=== PATIENT | male | born 1955 | race Caucasian/White ===

== ENCOUNTER 2018-05-21 19:12 | Inpatient (IN) | payer SELFPAY ==
[2018-05-21] MEDS ORDERED: NS 0.9% 1000 ML* 1,000 ML IV ONE (19:43)
--- NOTE | 2018-05-21 19:45 | ED ---
Neurological HPI - HPI Summary HPI Summary: A 63 y/o male brought in by [place] [facility] presents to [facility] with a chief complaint of right sided numbness. The patient is unable to recall the time of onset but states it was still light outside, so most likely before 16: 30. The patient arrived in the ED at 19:10. Christy cooney was called at 19:[address] Redmond was at bedside examining the patient. He states that he does not have any current pain and rates his pain as 0/10. He also c/o right sided weakness [employer] but states that he was able to ambulate and is not weak anymore. In the ED he is tachycardic. He claims that it felt like he was given Novocaine. The patient reports a Hx of high blood pressure but states that he has not taken medication for it in years. - History of Current Complaint Chief Complaint: EDNeurologicalDeficit Stated Complaint: RIGHT SIDED NUMBNESS Time Seen by Provider: 05/21/18 19:36 Hx Obtained From: Patient, EMS Onset/Duration: Sudden Onset, Started hours ago Timing: Constant Onset Severity: Moderate Current Severity: Moderate Pain Intensity: 0 Pain Scale Used: 0-10 Numeric Character: Weak, Numbness/Tingling Aggravating: Nothing Alleviating: Nothing Associated Signs and Symptoms: Positive: Weakness - Allergy/Home Medications Allergies/Adverse Reactions: Allergies Allergy/AdvReac Type Severity Reaction Status Date / Time No Known Allergies Allergy Verified 05/21/18 19:35 Home Medications: Home Medications NK [No Home Medications Reported] 05/21/18 [History Confirmed 05/21/18] PMH/Surg Hx/FS Hx/Imm Hx Infectious Disease History: Yes Infectious Disease History: Denies: Traveled Outside the [place] in Last 30 Days - Social History Alcohol Use: None Substance Use Type: Reports: None Smoking Status (MU): Never Smoked Tobacco Review of Systems Positive: Other - Positive: tachycardic Positive: Weakness - right sided, Numbness - right sided All Other Systems Reviewed And Are Negative: Yes Physical Exam - Summary Physical Exam Summary: Appearance: The patient is well-nourished in no acute distress and in no acute pain. Skin: The skin is warm and dry and skin color reflects adequate perfusion. HEENT: The head is normocephalic and atraumatic. The pupils are equal and reactive. The conjunctivae are clear and without drainage. Nares are patent and without drainage. Mouth reveals moist mucous membranes and the throat is without erythema and exudate. The external ears are intact. The ear canals are patent and without drainage. The tympanic membranes are intact. Neck: The neck is supple with full range of motion and non-tender. There are no carotid bruits. There is no neck vein distension. Respiratory: Chest is non-tender. Lungs are clear to auscultation and breath sounds are symmetrical and equal. Cardiovascular: Tachycardic. There is no murmur or rub auscultated. There is no peripheral edema and pulses are symmetrical and equal. Abdomen: The abdomen is soft and non-tender. There are normal bowel sounds heard in all four quadrants and there is no organomegaly palpated. Musculoskeletal: There is no back tenderness noted. Extremities are non-tender with full range of motion. There is good capillary refill. There is no peripheral edema or calf tenderness elicited. Neurological: Patient is alert and oriented to person, place and time. Decreased sensation on right side. Psychiatric: The patient has an appropriate affect and does not exhibit any anxiety or depression. GCS: 15 Triage Information Reviewed: Yes Vital Signs On Initial Exam: Initial Vitals Temp Pulse Resp BP Pulse Ox 99.7 F 115 18 185/118 95 05/21/18 19:27 05/21/18 19:27 05/21/18 19:27 05/21/18 19:27 05/21/18 19:27 Vital Signs Reviewed: Yes Diagnostics - Vital Signs Vital Signs Temp Pulse Resp BP Pulse Ox 05/21/18 19:27 99.7 F 115 18 185/118 95 - Laboratory Result Diagrams: 05/21/18 19:51 05/21/18 19:50 Lab Statement: Any lab studies that have been ordered have been reviewed, and results considered in the medical decision making process. - Radiology CXR Radiology Interpretation Completed By: ED Physician Summary of Radiographic Findings: no acute process - CT Head CTA CT Interpretation Completed By: Radiologist Summary of CT Findings: 1. Limited atherosclerosis in the intracavernous portions of the right and left. internal carotid arteries with less than 50% stenoses. 2. M2 branches of the right middle cerebral artery appears somewhat diminutive. without definite occlusion. NECK: No dissection, aneurysm, or significant stenosis in the extracranial carotid. systems or vertebral arteries. ED physician has reviewed this report. Brain CT Interpretation Completed By: Radiologist Summary of CT Findings: 1. No acute intracranial pathology. ASPECTS score 10. 2. Other chronic findings, as above. ED physician has reviewed this imaging report. - EKG 19:46 Cardiac Rate: Tachycardia - 114 bpm EKG Rhythm: Sinus Tachycardia Summary of EKG Findings: normal ST, no ectopy, no STEMI NIH Scale - NIH Scale Level of Consciousness: Alert/Keenly Responsive Ask Patient the Month and His/Her Age: Both Correct Ask Pt to Open/Close Eyes and Cloth Dyeing Range Tender/Release Non-Paretic Hand: Both Correctly Best Gaze (Only Horizontal Eye Movement): Normal Visual Field Testing: No Visual Loss Facial Paresis-Pt to Smile & Close Eyes or Grimace Symmetry: Normal/Symmetrical Motor Function - Right Arm: No Drift-Holds 10 Seconds Motor Function - Left Arm: No Drift-Holds 10 Seconds Motor Function - Right Leg: No Drift-Holds 10 Seconds Motor Function - Left Leg: No Drift-Holds 10 Seconds Limb Ataxia-Must be out of Proportion to Weakness Present: Absent Sensory (Use Pinprick to Test Arms/Legs/Trunk/Face): Pinprick Less on Affected - decreased sensation on right side Best Language (Describe Picture, Name Items): No Aphasia Dysarthria (Read Several Words): Normal Extinction and Inattention: No Abnormality Total Score: 1 Re-Evaluation - Re-Evaluation First Eval Re-Evaluation Time: 19:45 Change: Unchanged Comment: Performing code cooney examination Course/Dx - Course Course Of Treatment: Mr. Roe presented to the emergency department with clinical signs of his CVA. He was equivocal as to time of onset but it was almost certainly greater than 3 hours prior to presentation. He initially felt weakness on his right side as well as numbness on the right extremities and face. By the time he got to the ED he felt only mild residual numbness in those areas. He was no longer week. His NIH stroke scale on arrival was 1 for subjective decreased sensation on his right face right upper extremity and right lower extremity. Although the time of onset was questionable and he is not a thrombolytic candidate secondary to a very mild deficit, for the sake of exigency a mari cooney was called. This allowed me to get the CT which was read as negative quickly and the following CTA. The CTA ruled out any retrievable clot in the hospitalist service was contacted for admission for further workup. - Diagnoses Provider Diagnoses: CVA (cerebral vascular accident) - Physician Notifications Discussed Care Of Patient With: Ginna Cruz Time Discussed With Above Provider: 21:45 Instructed by Provider To: Admit As Inpatient - Critical Care Time Critical Care Time: 30-74 min Discharge - Sign-Out/Discharge Documenting (check all that apply): Patient Departure - admit - Discharge Plan Condition: Stable Disposition: ADMITTED TO [facility] Referrals: Kavin Robbins MD [Primary Care Provider] - - Billing Disposition and Condition Condition: STABLE Disposition: Admitted to [facility] - Attestation Statements Document Initiated by Scribe: Yes Documenting Scribe: Sahil Williamson Provider For Whom More is Documenting (Include Credential): Srini Redmond MD Scribe Attestation: Sahil Vitale, scribed for Srini Redmond MD on 05/21/18 at 2158. Scribe Documentation Reviewed: Yes Provider Attestation: The documentation as recorded by the Sahil souza accurately reflects the service I personally performed and the decisions made by , Srini Redmond MD Status of Scribe Document: Viewed
[2018-05-21 20:05] LABS: ABS Basophils 0 10^3/ul (0-0.2); ABS Eosinophils 0.1 10^3/ul (0-0.6); ABS Lymphocytes 1.4 10^3/ul (1.0-4.8); ABS Monocytes 0.6 10^3/ul (0-0.8); ABS Neutrophils 6.6 10^3/ul (1.5-7.7); ABS Nucleated RBC 0 10^3/ul; Hematocrit 47 % (42-52); Hemoglobin 15.9 g/dl (14.0-18.0); Mean Corpuscular HGB Conc 34 g/dl (31-36); Mean Corpuscular Hemoglobin 30 pg (27-31); Mean Corpuscular Volume 90 fL (80-94); Mean Platelet Volume 7.3 fL (7.4-10.4); Nucleated Red Blood Cells % 0.1; Platelet Count 185 10^3/ul (150-450); Red Blood Count 5.25 10^6/ul (4.00-5.40); Red Cell Distribution Width 14 % (10.5-15); White Blood Count 8.7 10^3/ul (3.5-10.8)
[2018-05-21] MEDS ORDERED: Iodixanol* (CONTRAST) 320 MG/ML 100 ML SDV IV ONE (20:25)
[2018-05-21 20:28] LABS: INR 0.88 (0.77-1.02)
[2018-05-21] MEDS ORDERED: Aspirin TAB* 325 MG PO ONE (22:07)
[2018-05-22] MEDS ORDERED: Acetaminophen TAB* 325 MG PO PRN (00:01)
--- NOTE | 2018-05-22 02:00 | HP ---
CC: Dr. Robbins * HISTORY AND PHYSICAL: DATE OF ADMISSION: 05/22/18 PRIMARY CARE PROVIDER: Dr. Robbins CHIEF COMPLAINT: Right-sided numbness and mild weakness. 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 He came inside at approximately 30 minutes after arriving into his house, he began to feel right- sided numbness. The patient states that he believes it began in his right arm. Ultimately, ended up involving the entire right side of the face to right arm, and right leg. He believes that the symptoms were present for approximately 45 minutes. He believes he also felt slightly weak and had somewhat of a difficult time walking, but he did not fall or feel like he was stumbling to the right. At one point, he does tell me that he believes he had an episode that resolved and then had another episode, but he is a poor historian and it is difficult to truly determine timing of everything as the patient states he does not have a watch nor does he have a phone. The patient was home alone and ultimately contacted 911 to present to the emergency room for evaluation. At the time of my evaluation, the patient stated that his symptoms had completely resolved. I was notified by the nurse after my initial evaluation the patient had return of numbness on the right side of his body, but no associated weakness. PAST MEDICAL HISTORY: None. PAST SURGICAL HISTORY: None. MEDICATIONS: 1. Multivitamin 1 tab p.o. daily. 2. Calcium, magnesium, zinc 1 tab p.o. daily. 3. Vitamin C daily. 4. Fish oil daily. 5. Vitamin E daily. ALLERGIES: None. FAMILY HISTORY: Mom in her 40s of lung-related disease. Dad in his 40s, he believes of an CA. SOCIAL HISTORY: The patient is a lifelong nonsmoker. He does not drink alcohol. He works as a king. He has . He has 1 child. He indicates of his half- brother, Garth Chaney, phone number [phone] will be his healthcare proxy. REVIEW OF SYSTEMS: A complete 11-system review of systems is obtained. Pertinent positives and negatives are as per HPI and otherwise negative. PHYSICAL EXAMINATION GENERAL: The patient is a well-developed middle-aged male sitting up in the stretcher, in no acute distress. VITAL SIGNS: Blood pressure 189/119, pulse 97, respirations 19, temp 99, and O2 sat 94% on room air. HEENT: Pupils are equal and round. Extraocular muscles are intact. Oropharynx is clear. Oral mucosa is moist. There is no submandibular, cervical , or supraclavicular adenopathy. Thyroid is not enlarged. No thyroid nodules are noted. PULMONARY: Lungs are clear to auscultation bilaterally. CARDIAC: Normal S1, S2. Heart rate is mildly tachycardic, but regular. There is no lower extremity edema. ABDOMEN: Bowel sounds are present. Abdomen is soft, nontender and nondistended. MUSCULOSKELETAL: There is no cyanosis or clubbing of the digits. There is full active range of motion of all 4 extremities. SKIN: Warm and dry. There are no rashes. NEURO: Cranial nerves II through XII appeared to be grossly intact, though there is a slight droop to the left corner of the mouth. Upper and lower extremity strength is 5/5 and symmetric bilaterally. Sensation is intact to light touch and symmetric in all 4 limbs. PSYCH: The patient is alert. He is oriented x3. Affect appears appropriate. DIAGNOSTIC STUDIES AND LABORATORY DATA: WBC 8.7, hemoglobin 15.9, hematocrit 47, platelets 189. INR 0.88. Sodium 138, potassium 4.0, chloride 108, CO2 23, BUN 22 and creatinine 0.8, glucose 114. Lactic acid 0.6. Calcium 9.5. Bilirubin 0.4, AST 21, ALT 34, alk phos 67. Troponin 0. Albumin 4.5. Triglyceride 161, cholesterol 245, LDL 163, HDL 50.3. CT brain: No acute intracranial pathology. There are nonspecific hyperdensities with periventricular and deep subcortical white matter, most likely secondary to chronic small vessel ischemic change. CTA head and neck. There is limited atherosclerosis in the intracavernous portions of the right and left internal carotid arteries with less than 50% stenosis. M2 branches of the right middle cerebral artery appeared somewhat diminutive without definite occlusion. There is no dissection, aneurysm or significant stenosis of the extracranial carotid systems or vertebral arteries. Chest x-ray to my interpretation appears clear. EKG reveals sinus tachycardia without any acute ST-T wave abnormalities. There are nonspecific T-wave changes in lead III and aVF. ASSESSMENT AND PLAN: Mr. Roe is a 63-year-old male with no significant past medical history, who presents to the emergency room with sudden onset of right- sided numbness and perhaps mild weakness that has recurred multiple times and could be consistent with stuttering transient ischemic attack course. 1. Transient ischemic attack. The patient will be admitted under observation status for evaluation and management of probable stuttering transient ischemic attack. The patient has had now 3 episodes of right-sided numbness. He received aspirin 325 mg p.o. x1 in the emergency room and this will continue on a daily basis. I have started Lipitor 40 mg p.o. q.h.s. Hemoglobin A1c is pending. The patient will have neuro checks every 4 hours. A transthoracic echocardiogram has been ordered with bubble study. He will be monitored on telemetry for evidence of atrial fibrillation. Additionally, the patient is markedly hypertensive at this time, however, still below the goal of 220/120 or treatment in the setting of acute neurologic event. In the next 24 hours or so , the patient should likely start having antihypertensive medications added to control his blood pressure. An MRI has been ordered. Of note, the patient does not have health insurance and is concerned about the financial impact of his hospital stay. 2. Hypertension as above. The patient is markedly hypertensive, though his blood pressures have all been less than 220/120. At this point, I will not give any antihypertensives, though in the next 24 hours or so, this likely could be started. 3. Tachycardia. The patient has been mildly tachycardic during his ER stay. He does admit some nervousness about his current situation. We will monitor his heart rate and not initiate therapy for this at this time. 4. DVT prophylaxis. According to the Adult Thrombosis Prophylaxis Risk Factor Assessment Guide, the patient has a total risk factor score of 8, making him the highest risk. He will be placed on Lovenox 40 mg subcutaneous daily as DVT prophylaxis. 5. Code status is full. TIME SPENT: Sixty-five minutes was spent admitting this patient. [id number]/[facility] #: [id number] TONIA
[2018-05-22] MEDS ORDERED: Aspirin EC TAB* 325 MG PO SCH (09:00)
[2018-05-22] MEDS: Clopidogrel TAB* 75 MG PO SCH (10:43)
--- NOTE | 2018-05-22 13:20 | CONS ---
CC: Dr. Robbins CONSULTATION REPORT: DATE OF CONSULT: 05/22/18 LOCATION: A 53-year-old gentleman currently in room 443, bed 2. PRIMARY CARE PROVIDER: Dr. Robbins. REASON FOR CONSULT: Right-sided numbness and tingling, as well as some right- sided weakness that is now resolved. HISTORY OF PRESENT ILLNESS: Mr. Roe is a 63-year-old gentleman who has a history of some borderline hypertension, but is on no medications at home, does not take an aspirin at home. 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 This involved his face, arm, and leg. He denied any facial droop, speech difficulties, vision changes, or vision loss, double vision. No problem swallowing or speaking. No focal numbness, tingling or weakness on his left side. He denies any fall or head trauma. He has never had any episodes like this before. He has not been sick recently. He states that his symptoms lasted between 25 and 45 minutes. He did note that he had some mild weakness on the right side and felt like he was "wobbly" but did not fall. By the time he arrived in the ER, he states that his symptoms had resolved except for some very subtle numbness and tingling on the medial aspect of his right arm. By the time he was in the ER, his symptoms had largely resolved and he was admitted for a TIA workup. He has never had any similar symptoms in the past. He is a nonsmoker. He was unclear if he has hypercholesterolemia. PAST MEDICAL HISTORY: Negative. PAST SURGICAL HISTORY: Negative. MEDICATIONS: He takes at home, medications; 1. Multivitamin. 2. Calcium. 3. Vitamin C. 4. Fish oil. 5. Vitamin E. Inpatient medications, he is on: 1. Lovenox DVT prophylaxis. 2. He did receive aspirin and has been started on statin as well. ALLERGIES: No known drug allergies. FAMILY HISTORY: Mother had lung disease and father had heart attack. SOCIAL HISTORY: Nonsmoker, nondrinker. No illicit substance use. 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 REVIEW OF SYSTEMS: Review of systems in 14-organ systems as noted above, otherwise negative. PHYSICAL EXAM: Vital Signs: Temp of 98.1, blood pressure 196/104 to 211/120, pulse of 83, respiratory rate of 20, pulse ox is 97%-98%. General: He is a well- nourished, well-developed gentleman, in no acute distress. He is pleasant , well dressed, well groomed. HEENT: Normocephalic, atraumatic. Sclerae are anicteric. Mucous membranes are moist. Oropharynx is clear. Nares are patent. Neck: Supple. No thyromegaly. No carotid bruits. No meningismus. Chest: Clear to auscultation bilaterally. Cardiovascular: Regular rate and rhythm. Abdomen: Nontender, nondistended. Extremities: No clubbing, cyanosis, or edema. Skin: Warm and dry without lesions. Neurologic: He is awake, alert, oriented x3. His speech is fluent. There is no dysarthria. Repetition is intact. Recall of recent and remote events is intact. Vocabulary is intact. His mood is dysthymic. Affect, mood congruent. Cranial Nerves: II through XII. Pupils are equal, round and reactive to light and accommodation. Extraocular muscles are intact. No diplopia. No nystagmus. Visual ho are full to confrontation. Face is symmetric. Facial sensation is intact. No loss on the right side. Hearing is intact to finger rub bilaterally. Palate raises symmetrically. Tongue is midline. Sternocleidomastoid and trapezius are 5/5. Motor Exam: He is spontaneously moving all extremities antigravity. There is no drift, 5/5 throughout. Tone and bulk are both normal. Sensation intact to light touch and pinprick throughout except for some mild numbness in the ulnar aspect of his right arm with loss of light touch to pinprick in an ulnar distribution. His [id number] and rapid alternating movements are intact without tremor. He has no resting tremor noted. No dysdiadochokinesia or dysmetria. His gait is normal with normal arm swing and stride. Romberg is minimal sway with eyes open and closed. DIAGNOSTIC STUDIES/LAB DATA: His CT of the brain initially at the time of admission was negative for acute with an ASPECTS score of 10. He did have what appears to be some chronic small vessel ischemic changes and some atherosclerosis. CT angiogram of the head and neck shows some mild atherosclerosis of the cavernous portions of the right and left internal carotid arteries, less than 50% stenosis and M2 branch on the right middle cerebral artery is diminutive without definite occlusion. No dissection, aneurysm, or significant stenosis in the extracranial carotid systems or vertebral arteries. Lab work includes a CBC with diff that was essentially normal. INR of 0.88, PTT of 28.3. Complete metabolic profile with the BUN and creatinine ratio of 27.5, glucose of 114. Cholesterol 245, LDL 163, HDL 50.3. Hemoglobin A1c 5.3. ASSESSMENT AND PLAN: Mr. Roe is a 63-year-old gentleman with a history of borderline hypertension on no medications, some mild to moderate hyperlipidemia on presentation, presents to the hospital with acute onset of right face, arm, and leg numbness and tingling with some possible weakness as well lasting approximately between 25 and 45 minutes. By the time he arrived in the hospital, symptoms had largely resolved. He does have some residual numbness on the right ulnar distribution. Otherwise, exam is nonfocal. He does have significant high blood pressure on examination with some hypercholesterolemia. He did receive an aspirin yesterday. CT angiogram shows no obvious major stenosis, although there is some M2 on the right, nonsymptomatic side, with some narrowing. Echocardiogram and MRI are pending. --Continue with his aspirin. Add Plavix and he should take aspirin and Plavix for the next 30 days at which point he can stop the Plavix and continue the aspirin 81 mg. --He has been started on statin with a goal LDL less than 70. --Need to strive for tight blood pressure control and would work on bringing this down over the next day or so. If his MRI of the brain shows no evidence of a stroke, then can be more aggressive with blood pressure control. --He is a nondiabetic, nonsmoker. --He knows to return to the ER immediately should he have any new symptoms. --Recommend outpatient 30 day monitor to look for evidence of A.fib --Follow up with me as an outpatient. Assuming his MRI is negative and his echocardiogram is normal, I think it is okay to discharge him home on aspirin and Plavix once his blood pressure is stabilized, although I defer to his primary care team and will continue to be monitored on telemetry for evidence of arrhythmia. Thank you for the opportunity to participate in the care of this very interesting patient. [id number]/[facility] #: [id number] [facility]ITALTing
--- NOTE | 2018-05-22 16:09 | ECHO ---
Patient: ALEX MONTOYA [facility] Rec#: [id number] : 1955 Date: 05/22/2018 Age: 63y Height: 180 cm / 70.9 in Weight: 100 kg / 220.4 lbs Sex: M BSA: 2.2 Room#: [facility] Admit Date#: 05/21/2018 Type: Inpatient Referring: Ginna Cruz DO Reading: Gianluca Chavarria MD Document Improvement Specialist: Annika Borrero RDCS,RDMS CC: Kavin Robbins MD Transthoracic Echocardiogram Indication: TIA BP: 196/111 HR: 102 Rhythm: Tachycardia Findings History: No previous history Technical Comments: The study quality is fair. Left Ventricle: The left ventricular chamber size is normal. Mild to moderate concentric left ventricular hypertrophy is observed. Global left ventricular wall motion and contractility are within normal limits. There is normal left ventricular systolic function. The estimated ejection fraction is 55-60%. There is no consistent Doppler evidence of clinically significant diastolic dysfunction. Left Atrium: The left atrium is slightly dilated. Right Ventricle: The right ventricular chamber size and systolic function are within normal limits. Right Atrium: The right atrial cavity size is normal. The bubble study is negative. A patent foramen ovale is not demonstrated with color Doppler and agitated contrast. Aortic Valve: The aortic valve is trileaflet. The aortic valve leaflets are mildly thickened. There is no evidence of aortic regurgitation. There is no evidence of aortic stenosis. Mitral Valve: The mitral valve leaflets appear normal. There is no evidence of mitral regurgitation. There is no evidence of mitral stenosis. Tricuspid Valve: The tricuspid valve leaflets are normal. There is no evidence of tricuspid valve regurgitation. Unable to estimate the right ventricular systolic pressure. Pulmonic Valve: The pulmonic valve appears normal. There is no evidence of pulmonic regurgitation. Pericardium: There is no significant pericardial effusion. Aorta: The aortic root appears normal. The aortic arch is not well visualized. Pulmonary Artery: The main pulmonary artery appears normal. Venous: The inferior vena cava appears normal in size. There is an approximate 50% respiratory change in the inferior vena cava dimension. Contrast: Intravenous agitated saline contrast was used to assess intracardiac shunting. Summary: There was not any prior study for comparison. Conclusions Mild to moderate concentric left ventricular hypertrophy is observed. Global left ventricular wall motion and contractility are within normal limits. The estimated ejection fraction is 55-60%. A patent foramen ovale is not demonstrated with color Doppler and agitated contrast. There is no evidence of aortic stenosis. There is no evidence of mitral regurgitation. There is no evidence of tricuspid valve regurgitation. There is no significant pericardial effusion. Measurements Name Value Normal Range RVIDd (AP) 2D 2.9 cm (0.9 - 2.6) RAd ISD 4CH 4.4 cm (3.4 - 4.9) RA (A4C)W 3.9 cm (2.9 - 4.6) IVSd (2D) 1.5 cm (0.6 - 1) LVPWd (2D) 1.3 cm (0.6 - 1) LVIDd (2D) 5 cm (3.6 - 5.4) LVIDs (2D) 3.1 cm - LV FS (2D) 39 % (25 - 45) Aortic Annulus 2.3 cm (1.4 - 2.6) Ao root diameter (2D) 3.4 cm (2.1 - 3.5) Ascending Ao 3 cm (2.1 - 3.4) Aortic arch 3 cm (1.8 - 3.4) LA dimension (AP) 2D 4.1 cm (2.3 - 3.8) LAd ISD 4CH 5.2 cm (2.9 - 5.3) LA ISD 4CH W 3.8 cm (2.5 - 4.5) Name Value Normal Range LA ESV BP (A/L) index 21 ml/m2 - Name Value Normal Range MV E-wave Vmax 0.5 m/sec - MV deceleration time 44 msec - MV A-wave Vmax 0.8 m/sec - MV E:A ratio 0.6 ratio - LV septal e' Vmax 0.05 m/sec - LV lateral e' Vmax 0.06 m/sec - LV E:e' septal ratio 10 ratio - LV E:e' lateral ratio 8 ratio - Name Value Normal Range AV Vmax 0.9 m/sec - AV VTI 13 cm - AV peak gradient 3.2 mmHg - AV mean gradient 2 mmHg - LVOT Vmax 0.7 m/sec - LVOT VTI 11 cm - LVOT peak gradient 2 mmHg - LVOT mean gradient 1 mmHg - CARMEN Vmax 0.6 m/sec - Name Value Normal Range RAP 8 mmHg - IVC diameter 1.6 cm - Name Value Normal Range PV Vmax 0.7 m/sec - PV peak gradient 2 mmHg -
--- NOTE | 2018-05-22 17:44 | PN ---
Subjective Date of Service: 05/22/18 Interval History: Patient is feeling better today. Patient states his numbness has subsided except for the ulnar aspect of his right hand. Patient denies F/C, N/V, weakness , difficulty speaking, CP, SOB, diarrhea, bleeding, or other pain. Family History: Unchanged from Admission Social History: Unchanged from Admission Past Medical History: Unchanged from Admission Objective Active Medications: Acetaminophen (Tylenol Tab*) 650 mg PO Q4H PRN PRN Reason: PAIN Aspirin (Aspirin Ec Tab*) 81 mg PO DAILY [facility] Atorvastatin Calcium (Lipitor*) 40 mg PO 2100 [facility] Clopidogrel Bisulfate (Plavix Tab*) 75 mg PO DAILY [facility] Last Admin: 05/22/18 10:43 Dose: 75 mg Enoxaparin Sodium (Lovenox(*)) 40 mg SUBCUT Q24H [facility] Vital Signs - 8 hr 05/22/18 11:27 Temperature 98.7 F Pulse Rate 92 Respiratory 20 Rate Blood Pressure 185/107 (mmHg) O2 Sat by Pulse 96 Oximetry Oxygen Devices in Use Now: None Appearance: Patient is a 63yo male who appears stated age and is sitting in the bed in [facility]. Eyes: No Scleral Icterus, PERRLA Ears/Nose/Mouth/Throat: NL Teeth, Lips, Gums, Clear Oropharnyx, Mucous Membranes Moist Neck: NL Appearance and Movements; NL JVP, Trachea Midline Respiratory: Symmetrical Chest Expansion and Respiratory Effort, Clear to Auscultation Cardiovascular: NL Sounds; No Murmurs; No JVD, RRR, No Edema Abdominal: NL Sounds; No Tenderness; No Distention, No Hepatosplenomegaly Lymphatic: No Cervical Adenopathy Extremities: No Edema, No Clubbing, Cyanosis Skin: No Rash or Ulcers, No Nodules or Sclerosis Neurological: Alert and Oriented x 3, NL Muscle Strength and Tone, - - CN II- XII intact. Normal reflexes. Diminished sensation in right hand on dorsal edge. Result Diagrams: 05/21/18 19:51 05/21/18 19:50 Assess/Plan/Problems-Billing Assessment: Patient is a 63yo male with no known PMH who is admitted with several episodes of profound sensory loss on the right side of his body which is now resolved but is having an ongoing workup for CVA and blood pressure control. - Patient Problems (1) TIA (transient ischemic attack) Current Visit: Yes Status: Acute Code(s): G45.9 - TRANSIENT CEREBRAL ISCHEMIC ATTACK, UNSPECIFIED SNOMED Code(s): 240208047 Comment: - Sensory loss on right side of body - Improved except for small area - CT/CTA negative - Echo shows no PFO - MRI pending - Start ASA/Plavix - Permissive HTN until morning when BP therapy should begin if indicated. - HLD, started on statin - Appreciate Neurology input, F/U outpatient. (2) Hypertensive urgency Current Visit: Yes Status: Acute Code(s): I16.0 - HYPERTENSIVE URGENCY SNOMED Code(s): 540910661 Comment: - Initial BP>200/100 - Trending down slightly naturally - MRI decision point for CVA vs TIA and determining BP therapy. MRI still pending - Treat BP in AM if indicated with slow uptitration of medications. (3) DVT prophylaxis Current Visit: Yes Status: Acute Code(s): ICR2158 - SNOMED Code(s): 460319134 Comment: - Low risk, Ambulation and SCDs Status and Disposition: Observation for evaluation of TIA vs CVA and BP control
[2018-05-22] MEDS: Enoxaparin(*) 40 MG/0.4 ML SYR SUBCUT SCH (21:23)
[2018-05-22] MEDS: Atorvastatin* 40 MG TAB PO SCH (21:24)
[2018-05-23 06:09] LABS: ABS Basophils 0 10^3/ul (0-0.2); ABS Eosinophils 0.1 10^3/ul (0-0.6); ABS Lymphocytes 1.7 10^3/ul (1.0-4.8); ABS Monocytes 0.6 10^3/ul (0-0.8); ABS Neutrophils 4.1 10^3/ul (1.5-7.7); ABS Nucleated RBC 0 10^3/ul; Eosinophil % 1.8 %; Hematocrit 48 % (42-52); Hemoglobin 16.3 g/dl (14.0-18.0); Lymphocyte % 25.5 %; Mean Corpuscular HGB Conc 34 g/dl (31-36); Mean Corpuscular Hemoglobin 31 pg (27-31); Mean Corpuscular Volume 90 fL (80-94); Mean Platelet Volume 7.1 fL (7.4-10.4); Nucleated Red Blood Cells % 0.1; Platelet Count 191 10^3/ul (150-450); Red Blood Count 5.35 10^6/ul (4.00-5.40); Red Cell Distribution Width 14 % (10.5-15); White Blood Count 6.5 10^3/ul (3.5-10.8)
[2018-05-23 06:19] LABS: EGFR Non-African American 89.2 (>60)
[2018-05-23] MEDS: Clopidogrel TAB* 75 MG PO SCH (08:09)
[2018-05-23] MEDS: Aspirin EC TAB* 81 MG TAB.EC PO SCH (08:09)
[2018-05-23] MEDS ORDERED: hydrALAZINE IV* 20 MG/ML VIAL IV SLOW PU PRN (12:30)
--- NOTE | 2018-05-23 16:32 | PN ---
Subjective Date of Service: 05/23/18 Interval History: Patient seen and examined at bedside. Denies fever, chills, shortness of breath , chest discomfort, N/V/D. He reports that the right sided numbness has resolved except for right lateral 5th finger numbness. Discussed with patient if he was interested in changing PCPs on discharge as his is facing out and preparing to retire. He would like to change to another office near [place]. Tele: Sinus rhythm, rate 80's Family History: Unchanged from Admission Social History: Unchanged from Admission Past Medical History: Unchanged from Admission Objective Active Medications: Acetaminophen (Tylenol Tab*) 650 mg PO Q4H PRN Reason: PAIN Aspirin (Aspirin Ec Tab*) 81 mg PO DAILY [facility] Atorvastatin Calcium (Lipitor*) 40 mg PO 2100 [facility] Clopidogrel Bisulfate (Plavix Tab*) 75 mg PO DAILY [facility] Enoxaparin Sodium (Lovenox(*)) 40 mg SUBCUT Q24H [facility] Hydralazine HCl (Apresoline Iv*) 5 mg IV SLOW PU Q6H PRN Reason: BLOOD PRESSURE Vital Signs - 8 hr 05/23/18 05/23/18 11:45 15:07 Temperature 98.5 F 98.0 F Pulse Rate 92 86 Respiratory 16 16 Rate Blood Pressure 204/118 162/115 (mmHg) O2 Sat by Pulse 98 98 Oximetry Oxygen Devices in Use Now: None Appearance: NAD, sitting up in bed Ears/Nose/Mouth/Throat: Mucous Membranes Moist Respiratory: Symmetrical Chest Expansion and Respiratory Effort, Clear to Auscultation Cardiovascular: NL Sounds; No Murmurs; No JVD, RRR Abdominal: NL Sounds; No Tenderness; No Distention Extremities: No Edema Skin: No Rash or Ulcers Neurological: Alert and Oriented x 3, NL Muscle Strength and Tone Nutrition: Taking PO's Result Diagrams: 05/23/18 05:26 05/23/18 05:26 Assess/Plan/Problems-Billing Assessment: Ms. Roe is a 63yo male with no known PMH who is admitted with several episodes of profound sensory loss on the right side of his body which is now resolved but is having an ongoing workup for CVA and blood pressure control. - Patient Problems (1) CVA (cerebral vascular accident) Code(s): I63.9 - CEREBRAL INFARCTION, UNSPECIFIED SNOMED Code(s): 881857749 Comment: - Brain MRI shows a small CVA in the left thalamus, suspect secondary to HTN - Head CTA negative - Echo shows no PFO - Neurology consult, input appreciated - Continue ASA, Plavix (for 30 days), statin - Follow up with Dr. Crane in 2-4 weeks outpatient (2) Hypertensive urgency Code(s): I16.0 - HYPERTENSIVE URGENCY SNOMED Code(s): 272606801 Comment: - Present on admission, resolved - Initial BP > 200/100 - See HTN management below (3) HTN (hypertension) Code(s): I10 - ESSENTIAL (PRIMARY) HYPERTENSION SNOMED Code(s): 22593897 Comment: - Suspect this has been an ongoing issue - Echo shows LVH - Will start Metolprolol 25 mg BID (d/t LVH), can consider adding amlodipine if he continues to be hypertensive - Continue Hydralazine PRN (4) DVT prophylaxis Code(s): NIA9463 - SNOMED Code(s): 424753885 Comment: - Low risk, Ambulation and SCDs (5) Full code status Code(s): Z78.9 - OTHER SPECIFIED HEALTH STATUS SNOMED Code(s): 524887439 Status and Disposition: Inpatient for CVA and BP control. Discharge to home when medically stable and plan for medications has been established. Possibly in the AM.
[2018-05-23] MEDS: Metoprolol Tartrate TAB* 25 MG PO SCH (21:07)
[2018-05-23] MEDS: Atorvastatin* 40 MG TAB PO SCH (21:07)
[2018-05-23] MEDS: Enoxaparin(*) 40 MG/0.4 ML SYR SUBCUT SCH (21:08)
[2018-05-24] MEDS: Clopidogrel TAB* 75 MG PO SCH (08:19)
[2018-05-24] MEDS: Aspirin EC TAB* 81 MG TAB.EC PO SCH (08:19)
[2018-05-24] MEDS: Metoprolol Tartrate TAB* 25 MG PO SCH (08:19)
--- NOTE | 2018-05-24 09:12 | PN ---
CC: Geovani Crane MD PROGRESS NOTE: DATE OF SERVICE: 05/23/18 HISTORY OF PRESENT ILLNESS: Mr. Luis A Roe is a 63-year-old right-handed gentleman who was admitted on 05/21/18 with episode of right-sided numbness in the face, arm, and leg and possible weakness lasting 25 to 45 minutes. His symptoms resolved with the exception of some numbness in the right fifth digit and ulnar aspect of the hand. While in hospital, he had an MRI of the brain, which was reviewed directly and showed evidence of left thalamic ischemia. His blood pressure has been up as high as 204/118 and hydralazine has been started. His lipid profile showed cholesterol of 245 and LDL of 163 and he has been started on atorvastatin, and for stroke prophylaxis, Dr. Crane started aspirin and Plavix with plan to continue Plavix for 30 days. Echocardiogram showed [id number] LVH with ejection fraction of 55% to 60% . There was no PFO. He had a CTA of the brain and neck, which showed no significant stenosis or dissection. Overall, he is feeling better. He is left with just numbness. There have been no recurrent symptoms. He denies any chest pain, chest pressure, shortness of breath, new numbness or weakness of arms and legs other than that listed in the HPI. CURRENT MEDICATIONS: Include: 1. Acetaminophen 650 mg p.o. q.4 h. p.r.n. pain. 2. Plavix 75 mg p.o. daily. 3. Atorvastatin 40 mg p.o. daily. 4. Enoxaparin 40 mg subcu q.24 h. 5. Aspirin 81 mg p.o. daily. 6. Hydralazine 5 mg IV q.6 h. p.r.n. systolic blood pressure greater than 185 started today and provided at 1305. PHYSICAL EXAMINATION: On examination, his most recent blood pressure was 204/ 118. His pulse was 92 and regular, respiratory rate was 16, saturation was 98%, and temperature was 98.5 degrees Fahrenheit. He had a regular cardiac rhythm. Lungs were clear to auscultation. He was awake, alert, oriented. He had normal language function, adequate fund of knowledge. He had full extraocular movements with no nystagmus. Full ho to confrontation. His facial expression, sensation, and hearing were equal. Palate was upgoing. Tongue was midline. Sternocleidomastoid and trapezius were 5/5 in strength. There was normal bulk and tone. No pronator drift. Full strength in the upper and lower extremities with normal [id number] and khoz-lb-[id number] movements. He denied any asymmetries to pinprick, cold, or light touch. His reflexes were 2+ and symmetric in the upper and lower extremities. His Romberg was negative. He could walk on his heels and on his toes and he performed tandem gait without difficulty. DIAGNOSTIC STUDIES/LAB DATA: Data includes the patient's chart, which was reviewed including Dr. Crane's consult. Lipid profile, vitals, MRI of the brain , which was reviewed directly. CT of the brain and neck as noted above. Echocardiogram, please see HPI for further details and actual reports for full details. IMPRESSION: A 63-year-old right-handed king with history of left thalamic ischemic stroke in the setting of significant hypertension, findings of elevated cholesterol and LDL. He does need treatment of his blood pressure slowly. His symptoms have pretty much resolved. Given his stable history and examination, I would proceed in starting to lower his blood pressure slowly. He will need close followup with primary care and after a week of stability of symptoms and examination, I would be more aggressive in getting his blood pressure down to a normotensive blood pressure. He is on aspirin and Plavix and I would continue on this combination for a month, and then just aspirin. Overall, however, blood pressure is most likely the cause for a stroke in this region. I would suggest followup with Dr. Crane in 2 weeks, primary doctor sooner with close followup. Education was given to the patient. Case was discussed with hospitalist. TIME SPENT: Over 35 minutes were spent in direct [id number] patient care, over 50% of the time was spent in education and counseling regarding above issues. [id number]/[facility] #: [id number] TONIA
[2018-05-24 11:32] VITALS: BP 144/99
--- NOTE | 2018-05-24 12:31 | PN ---
Progress Note - Progress Note Date of Service: 05/24/18 Note: HPI: Right hand numbness continues to improve. Blood pressure better with hydralazine and metoprolol. No new concerns or symptoms. Working on getting new phone and insurance with social work. Acetaminophen (Tylenol Tab*) 650 mg PO Q4H PRN PRN Reason: PAIN Aspirin (Aspirin Ec Tab*) 81 mg PO DAILY [facility] Last Admin: 05/24/18 08:19 Dose: 81 mg Atorvastatin Calcium (Lipitor*) 40 mg PO 2100 [facility] Last Admin: 05/23/18 21:07 Dose: 40 mg Clopidogrel Bisulfate (Plavix Tab*) 75 mg PO DAILY [facility] Last Admin: 05/24/18 08:19 Dose: 75 mg Enoxaparin Sodium (Lovenox(*)) 40 mg SUBCUT Q24H [facility] Last Admin: 05/23/18 21:08 Dose: 40 mg Hydralazine HCl (Apresoline Iv*) 5 mg IV SLOW PU Q6H PRN PRN Reason: BLOOD PRESSURE Last Admin: 05/23/18 13:05 Dose: 5 mg Metoprolol Tartrate (Lopressor Tab*) 25 mg PO BID [facility] Last Admin: 05/24/18 08:19 Dose: 25 mg Vital Signs - 24 hr 05/23/18 05/23/18 05/23/18 15:07 19:37 20:00 Temperature 98.0 F 97.8 F Pulse Rate 86 87 Respiratory 16 20 20 Rate Blood Pressure 162/115 167/108 (mmHg) O2 Sat by Pulse 98 97 Oximetry 05/23/18 05/24/18 05/24/18 23:27 03:34 07:29 Temperature 98.1 F 98.7 F 97.8 F Pulse Rate 77 79 86 Respiratory 20 20 16 Rate Blood Pressure 139/84 112/84 160/91 (mmHg) O2 Sat by Pulse 99 98 97 Oximetry 05/24/18 05/24/18 07:52 11:18 Temperature 98.0 F Pulse Rate 87 Respiratory 16 20 Rate Blood Pressure 144/99 (mmHg) O2 Sat by Pulse 98 Oximetry Temp Pulse Resp BP Pulse Ox 98.0 F 87 20 144/99 98 05/24/18 11:18 05/24/18 11:18 05/24/18 11:18 05/24/18 11:18 05/24/18 11:18 Neurological Findings: Awake, Alert, Oriented x3 No dysarthria, Equal facial expression, No difficulty in coordinating movements. IMPRESSION/PLAN: 63-year old man with history of hypertension who was admitted with right sided numbness consistent with finding of new left thalamic stroke on MRI. He was started on ASA and clopidogrel for stroke prophylaxis, with plan to continue clopidogrel for 1 month. Atorvastatin was started in setting of stroke and elevated cholesterol and LDL. He has been started on hydralazine and metoprolol for blood pressure, with some improvement. In one week, with stable history and examination, would work on reduction to systolic<140/diastolic<80. Patient has blood pressure cuff and will monitor his blood pressure. He will follow up with his primary doctor julius. Social work is helping get him a new phone and working on getting health insurance. Patient will follow up with Dr. Crane in neurology. Of note, he will have a new phone number at that time, which will be updated in the [facility] system. Request was made to update Neurology office to help in communication and ensuring follow up visit. > 20 minutes spent in patient care, > 50% time spent in education and counseling re: stroke, evaluation, treatment, treatment of blood pressure, how to reach neurology, importance of close follow up with primary care.
--- NOTE | 2018-05-25 08:44 | DS ---
CC: [facility]; Dr. Geovani Crane * DISCHARGE SUMMARY: DATE OF ADMISSION: 05/22/18 DATE OF DISCHARGE: 05/24/18 PRIMARY CARE PROVIDER: [facility]. NEUROLOGIST: Dr. Geovani Crane. ATTENDING PHYSICIAN: Dr. Sabrina Chandra * (dictated by Frannie Hubbard NP) PRIMARY DIAGNOSES: 1. Left thalamus cerebrovascular accident. 2. Hypertensive urgency. STUDIES WHILE IN THE HOSPITAL: Brain CT on 05/21/18 reads as no acute intracranial pathology other chronic findings as noted in the body of the report. Chest x-ray on 05/21/18 reads as no evidence for acute intrathoracic disease. EKG on 05/21/18 shows sinus tachycardia with a rate of 114, QTc 448, no ischemic changes. Head CTA on 05/21/18 reads as limited atherosclerosis in the intracavernous portions of the right and left internal carotid arteries with less than 50% stenosis. M2 branches of the right middle cerebral artery appeared somewhat diminutive without definite occlusion. No dissection, aneurysm, or significant stenosis in the intracranial carotid systems or vertebral arteries. Transthoracic echocardiogram on 05/22/18 reads as [id number] concentric left ventricular hypertrophy is observed. Global left ventricular wall motion and contractility are within normal limits. The estimated ejection fraction is 55% to 60%. A patent foramen ovale is not demonstrated with color Doppler and agitated contrast. There is no evidence of aortic stenosis. There is no evidence of mitral regurgitation. There is no evidence of tricuspid valve regurgitation. There is no significant pericardial effusion. Brain MRI on 05/23/18 reads as small area of restriction of diffusion consistent with infarct in the left thalamus region. HISTORY OF PRESENT ILLNESS AND HOSPITAL COURSE: Mr. Roe is a 63-year-old male with no significant past medical history, who presented to the emergency room on 05/22/18 with complaints of right-sided numbness and weakness. Please see the history and physical by Dr. Cruz for complete summary of the events leading up to the hospitalization. In short, the patient began having symptoms that afternoon. Ultimately, his symptoms involved the entire right side of his body and were present for approximately 45 minutes. He had difficulty walking during that time. He called the EMS and presented to the emergency room. The patient had imaging as noted above. The patient was admitted by the hospitalist service for a TIA versus CVA. He received aspirin in the emergency room and was started on Lipitor. A1c was 5.3. The patient was allowed permissive hypertension because of the concern for a CVA and he was significantly hypertensive up to 190s/110. Ultimately, an MRI was done, which revealed a left thalamus CVA. The patient was seen in consultation by Dr. Crane on 05/22/18 and at that point, he recommended continuing aspirin, Plavix, and statin. The patient continued to recover well. He was eventually started on metoprolol to bring down his blood pressure to a safer level and as of the day of discharge, is in the one teens to 160s, which is adequate control at this point in time. He was seen today by Dr. Escudero, who felt that he is safe for discharge and recommended that he continue aspirin and Plavix as well as statin. She recommended followup with Dr. Crane in 2 weeks. As of today, the patient reports feeling well. He has no neurologic deficits and he is anxious to return home. Mr. Roe is stable for discharge today. Vital signs are as follows: Temp 98.0 , heart rate 87, respiratory rate 20, oxygen saturation 98% on room air, blood pressure 144/99. DISCHARGE MEDICATIONS: New home medications: 1. Aspirin 81 mg p.o. daily. 2. Atorvastatin 40 mg p.o. daily. 3. Clopidogrel 75 mg p.o. daily. 4. Metoprolol tartrate 25 mg p.o. b.i.d. DISCHARGE PLAN: Mr. Roe will be discharged to home. Activity will be as tolerated. Diet will be heart healthy, low salt, low fat. The patient has been started on aspirin and Plavix here in the hospital and he will continue this until further guidance from Neurology. Additionally, he has been started on Lipitor and metoprolol blood pressure is still slightly elevated today up into the 160s though it is recommended that we gradually decrease his blood pressure, so he may need further titration of his metoprolol. Ultimately, his stroke was felt to be secondary to hypertension though blood pressure control will be important going forward. The patient has been educated on his diagnosis and his new medications. He states as though he will be compliant, but I think there may be some challenges due to knowledge deficits and potentially lack of followup. He has been advised to return to the emergency room or nearest hospital for any worsening of symptoms, shortness of breath, lightheadedness, dizziness, chest discomfort, high fevers, chills, night sweats , loss of consciousness, or any other worrisome signs or symptoms. This is a summarized report of a complex medical history and hospital stay. For further details, please see the entire medical record. TIME SPENT: Approximately 45 minutes was spent on this discharge, greater than half of that time was spent [id number] with the patient discussing discharge plans and instructions. FRANNIE HUBBARD, COOK'S ASSISTANT [id number]/[facility] #: [id number] TONIA
== END 2018-05-24 13:25 | disposition home or self-care (01) | DRG 65 ==
LOC: ED 19:12 → MEDTELE 23:07 → OBSVTOIN 05-22 14:00
PROVIDERS: ADMIT Hospitalist; ATTEND Internal Medicine
DX: I63.9 Cerebral infarction, unspecified (principal); I69.951 Hemiplegia and hemiparesis following unspecified cerebrovascular disease affecting right dominant side; R00.0 Tachycardia, unspecified; I65.23 Occlusion and stenosis of bilateral carotid arteries; R29.701 NIHSS score 1; R20.2 Paresthesia of skin; I11.9 Hypertensive heart disease without heart failure; E78.00 Pure hypercholesterolemia, unspecified; R26.2 Difficulty in walking, not elsewhere classified; R20.0 Anesthesia of skin; I16.0 Hypertensive urgency; Z79.82 Long term (current) use of aspirin; Z86.19 Personal history of other infectious and parasitic diseases; Z83.6 Family history of other diseases of the respiratory system; Z82.49 Family history of ischemic heart disease and other diseases of the circulatory system; Z79.02 Long term (current) use of antithrombotics/antiplatelets
CPT/HCPCS: 36415; 70450; 70496; 70498; 70551; 71045; 80048; 80053; 80061; 83036; 83605; 83735; 84484; 85025; 85610; 85730; 86850; 86900; 86901; 93005; 93306; 99284; A9270-GY; G0378; J0360; J1650; Q9967